=== PATIENT | female | born 1980 | race American Indian/Alaskan Native ===

== ENCOUNTER 2017-07-11 04:53 | Emergency (ER) | payer MEDICAID ==
[2017-07-11 05:01] VITALS: BP 137/69; PULSE 82; TEMP 98.2; O2SAT 98
--- NOTE | 2017-07-11 05:05 | ED PDOC ---
Arrival/HPI - General Chief Complaint: Dental Pain Time Seen by Provider: 07/11/17 05:00 Historian: Patient - History of Present Illness Narrative History of Present Illness (Text): 07/11/17 05:05 Raissa Ortega is a 37 year old female who presents to the Emergency department complaining of right upper dental pain. Patient states she began experiencing right upper dental pain yesterday but woke up with worsening pain this morning. Patient notes she has 2 cracked molars and has not taken any medication for pain. Patient denies any fever, neck pain, headache, dizziness, or any other complaints. Symptom Onset: Gradual Symptom Course: Unchanged Activities at Onset: Light Context: Home Past Medical History - Provider Review Nursing Documentation Reviewed: Yes - Infectious Disease Hx of Infectious Diseases: None Family/Social History - Physician Review Nursing Documentation Reviewed: Yes Family/Social History: Unknown Family HX Allergies/Home Meds Allergies/Adverse Reactions: Allergies No Known Allergies Allergy (Verified 07/11/17 05:01) Review of Systems - Physician Review All systems were reviewed & negative as marked: Yes - Review of Systems Constitutional: Normal. absent: Fevers Eyes: Normal ENT: Other (+right upper dental pain) Respiratory: Normal. absent: SOB, Cough Cardiovascular: Normal. absent: Chest Pain Gastrointestinal: Normal. absent: Abdominal Pain, Diarrhea, Nausea, Vomiting Genitourinary Female: Normal. absent: Dysuria, Frequency, Hematuria, Urine Output Changes Musculoskeletal: Normal. absent: Back Pain, Neck Pain Skin: Normal. absent: Rash Neurological: Normal. absent: Headache, Dizziness Endocrine: Normal Hemo/Lymphatic: Normal Psychiatric: Normal Physical Exam Vital Signs Reviewed: Yes Vital Signs Temp Pulse Resp BP Pulse Ox 07/11/17 05:39 20 98 07/11/17 05:00 98.2 F 82 18 137/69 98 Temperature: Afebrile Blood Pressure: Normal Pulse: Regular Respiratory Rate: Normal Appearance: Positive for: Well-Appearing, Non-Toxic, Comfortable Pain Distress: None Mental Status: Positive for: Alert and Oriented X 3 - Systems Exam Head: Present: Atraumatic, Normocephalic Pupils: Present: PERRL Extroacular Muscles: Present: EOMI Conjunctiva: Present: Normal Mouth: Present: Moist Mucous Membranes. No: Normal Teeth (Tenderness to 2 right upper molars) Pharnyx: Present: Normal. No: ERYTHEMA, EXUDATE, TONSILS ENLARGED, Peritonsilar Swelling, Uvular Deviation, Muffled/Hoarse Voice, Strider, Soft Palate/Uvular Edema Neck: Present: Normal Range of Motion Respiratory/Chest: Present: Clear to Auscultation, Good Air Exchange. No: Respiratory Distress, Accessory Muscle Use Cardiovascular: Present: Regular Rate and Rhythm, Normal S1, S2. No: Murmurs Neurological: Present: GCS=15, CN II-XII Intact, Speech Normal Skin: Present: Warm, Dry, Normal Color. No: Rashes Psychiatric: Present: Alert, Oriented x 3, Normal Insight, Normal Concentration Medical Decision Making ED Course and Treatment: 07/11/17 05:05 Impression: 37 year old female complaining of right upper dental pain. Plan: -- Amoxil -- Percocet -- Reassess and disposition Progress Notes: 07/11/17 05:35 On re-evaluation, patient feels better and is in no acute distress. Patient is stable for discharge. Patient was instructed to follow up with physician or return if symptoms worsen or new concerning symptoms arise. - Medication Orders Current Medication Orders: Discontinued Medications Amoxicillin (Amoxil 500 Mg Cap) 500 mg PO STAT STA PRN Reason: Protocol Stop: 07/11/17 05:09 Last Admin: 07/11/17 05:28 Dose: 500 mg Oxycodone/Acetaminophen (Percocet 5/325 Mg Tab) 1 tab PO STAT STA Stop: 07/11/17 05:08 Last Admin: 07/11/17 05:27 Dose: 1 tab [facility] Pain Assessment Document 07/11/17 05:27 SS (Rec: 07/11/17 05:28 SS [id number]) Pain Reassessment Is this a pain reassessment? Yes Presence of Pain Presence of Pain Yes Pain Scale Used Pain Scale Used Numeric Location Left, Right or Bilateral Right Pain Location Body Site Jaw Description Description Constant Intensity of Pain at present 8 Pain Behavior Rubbing Site - Scribe Statement The provider has reviewed the documentation as recorded by the Belkys Beavers Provider Scribe Attestation: All medical record entries made by the Scribe were at my direction and personally dictated by me. I have reviewed the chart and agree that the record accurately reflects my personal performance of the history, physical exam, medical decision making, and the department course for this patient. I have also personally directed, reviewed, and agree with the discharge instructions and disposition. Disposition/Present on Arrival - Present on Arrival Any Indicators Present on Arrival: No History of DVT/PE: No History of Uncontrolled Diabetes: No Urinary Catheter: No History of Decub. Ulcer: No History Surgical Site Infection Following: None - Disposition Have Diagnosis and Disposition been Completed?: Yes Diagnosis: Dental caries Disposition: HOME/ ROUTINE Disposition Time: 05:35 Condition: GOOD Discharge Instructions (ExitCare): Dental Pain (DC) Prescriptions: Amoxicillin 875 mg PO BID #14 tab oxyCODONE/Acetaminophen [Percocet 5/325 mg Tab] 1 ea PO QID #6 tab Forms: [facility] ([employer]), WORK NOTE
[2017-07-11] MEDS ORDERED: Oxycodone/Acetaminophen 5/325 mg Tab PO STA (05:07)
[2017-07-11 05:40] VITALS: RESP 20
== END 2017-07-11 05:39 | disposition home or self-care (01) ==
LOC: ED 04:53
DX: K02.9 Dental caries, unspecified (principal)